=== PATIENT | male | born 1985 | race Caucasian/White ===

== ENCOUNTER 2019-09-25 12:39 | Emergency (ER) | payer OTHER, SELFPAY ==
--- NOTE | 2019-09-25 12:47 | ED.NAVMDI ---
HPI - Nausea/Vomiting/Diarrhea General Chief complaint: Nausea/Vomiting/Diarrhea Stated complaint: stomach and diahrea Time Seen by Provider: 09/25/19 12:47 Source: patient and RN notes reviewed History of Present Illness HPI Narrative: Patient is a 33-year-old male that presents with the urgent care with no complaints. Patient states that his work is requiring a work note in order for him to return to work . Patient states that he took off 2 days due to loose stools. Patient states that it started on Saturday and he only had loose stools in the morning but was unable to get off the toilet in order to go to work. Patient states that he he believes he ate a greasy cheeseburger on Saturday evening that caused the loose stools. Patient denies of any nausea or vomiting. Patient currently denies of any abdominal pain. Denies of any urinary symptoms. Patient states that he is strictly here for a work release . Patient did not have to use anything [id number] or medications for his symptoms. Patient states that sometimes this happens because of his severe acid reflux . No other acute complaints. No acute distress noted. Patient read the plan of care. Related Data Home Medications Medication Instructions Recorded Confirmed No Home Medications 09/25/19 09/25/19 Allergies Allergy/AdvReac Type Severity Reaction Status Date / Time No Known Allergies Allergy Verified 09/25/19 12:58 Review of Systems Review of Systems: Narrative: CONSTITUTIONAL: Denies fever, chills, or sweats. EYES: Denies visual changes, redness, or discharge. ENT: Denies rhinorrhea, congestion, sore throat, or otalgia. CARDIOVASCULAR: Denies chest pain, palpitations, or edema. RESPIRATORY: Denies cough or dyspnea. GASTROINTESTINAL: Denies abdominal pain, nausea, vomiting, or diarrhea. GENITOURINARY: Denies dysuria or hematuria. SKIN: Denies rash or itching. MUSCULOSKELETAL: Denies back pain, joint pain, or myalgia. NEUROLOGIC: Denies headache, numbness, or weakness. All other systems reviewed are negative, except as documented in HPI. PMFSH Comments At the time of my signature, I reviewed and agree with the nursing past medical, surgical, social, and family history. There is no relevant family history pertinent to the patient complaint. Exam Narrative: Exam Narrative: GENERAL: This is a well-nourished, well-developed patient, in no apparent distress. HEAD: normocephalic, atraumatic. EYES: PERRL. Sclera clear/white. Vision is grossly intact. EARS: External ears normal NOSE: External nose normal with no obvious nasal discharge THROAT: Mucous membranes moist NECK: Neck supple GASTROINTESTINAL: Abdomen soft, non-tender, nondistended. Bowel sounds are active. No hepato-splenomegaly, or palpable masses. No guarding. SKIN: warm, intact with no suspicious lesions or rash, good texture and turgor. NEURO: awake, alert, and oriented to person, place and time. There were no obvious focal neurologic abnormalities. EXTREMITIES: No clubbing, cyanosis, or edema. Course Vital Signs Vital signs: Vital Signs Temperature 98 F 09/25/19 12:51 Pulse Rate 77 09/25/19 12:51 Respiratory Rate 14 09/25/19 12:51 Blood Pressure 101/76 09/25/19 12:51 Pulse Oximetry 100 09/25/19 12:51 Temperature 98 F 09/25/19 12:51 Pulse Rate 77 09/25/19 12:51 Respiratory Rate 14 09/25/19 12:51 Blood Pressure 101/76 09/25/19 12:51 Pulse Oximetry 100 09/25/19 12:51 Reviewed MDM - Nausea/Vomiting/Diarrhea MDM Narrative Medical decision making narrative: Patient was educated on our work release policy. We do not give releases to work and at this time patient is asymptomatic. Therefore, there is no reason that patient could not return to work. We do not rule out COVID-19 at our facility and if his workplace is concerned, he will need to follow-up otherwise for COVID-19 testing. However, I would not deem patient necessary for any further testing at th
[2019-09-25 12:51] VITALS: BP 101/76; PULSE 77; RESP 14; TEMP 36.6; O2SAT 100
== END 2019-09-25 13:08 | disposition home or self-care (01) ==
PROVIDERS: Emergency Provider Nurse Practitioner Family
DX: Z02.89 Encounter for other administrative examinations (principal); K21.9 Gastro-esophageal reflux disease without esophagitis
CPT/HCPCS: 99211; G0463